=== PATIENT | female | born 1950 | race Caucasian/White ===

== ENCOUNTER 2021-09-04 11:01 | Outpatient (CLI) | payer MEDICARE, BC | END 2021-09-04 11:02 | disposition home or self-care (01) | LOC: CSHMAMMO 11:01 | PROVIDERS: ATTEND Internal Medicine | DX: Z12.31 Encounter for screening mammogram for malignant neoplasm of breast (principal); Z85.3 Personal history of malignant neoplasm of breast; Z80.3 Family history of malignant neoplasm of breast | CPT/HCPCS: 77063; 77067 ==

== ENCOUNTER 2021-09-28 12:06 | Outpatient (CLI) | payer MEDICARE, BC ==
[2021-09-29 07:54] LABS: SARS-CoV-2 PCR by NAA Not Detected (NotDetected)
== END 2021-09-28 12:07 | disposition home or self-care (01) ==
LOC: CSHLAB 12:06
PROVIDERS: ATTEND Internal Medicine
DX: Z20.822 Contact with and (suspected) exposure to COVID-19 (principal)
CPT/HCPCS: U0003; U0005

== ENCOUNTER 2021-10-01 08:39 | Outpatient (CLI) | payer MEDICARE, BC | END 2021-10-01 08:40 | disposition home or self-care (01) | LOC: CSHRAD 08:39 | PROVIDERS: ATTEND Internal Medicine | DX: K44.9 Diaphragmatic hernia without obstruction or gangrene (principal); K21.9 Gastro-esophageal reflux disease without esophagitis | CPT/HCPCS: 74246 ==

== ENCOUNTER 2022-05-16 11:39 | Emergency (ER) | payer MEDICARE, BC | END 2022-05-16 13:38 | disposition home or self-care (01) | LOC: CSHERS 11:39 | DX: S09.90XA Unspecified injury of head, initial encounter (principal); S30.0XXA Contusion of lower back and pelvis, initial encounter; K21.9 Gastro-esophageal reflux disease without esophagitis; W11.XXXA Fall on and from ladder, initial encounter | CPT/HCPCS: 70450; 72125; 72220 ==

== ENCOUNTER 2022-10-18 14:22 | Outpatient (CLI) | payer MEDICARE, BC | END 2022-10-18 14:23 | disposition home or self-care (01) | LOC: CSHMAMMO 14:22 | PROVIDERS: ATTEND Student in an Organized Health Care Education/Training Program | DX: Z12.31 Encounter for screening mammogram for malignant neoplasm of breast (principal); R92.1 Mammographic calcification found on diagnostic imaging of breast; N63.10 Unspecified lump in the right breast, unspecified quadrant; Z80.3 Family history of malignant neoplasm of breast | CPT/HCPCS: 77063; 77067 ==

== ENCOUNTER 2023-10-28 09:15 | Outpatient (CLI) | payer MEDICARE, BC | END 2023-10-28 09:16 | disposition home or self-care (01) | LOC: CSHMAMMO 09:15 | PROVIDERS: ATTEND Student in an Organized Health Care Education/Training Program | DX: Z12.31 Encounter for screening mammogram for malignant neoplasm of breast (principal); Z13.820 Encounter for screening for osteoporosis; Z78.0 Asymptomatic menopausal state; M81.0 Age-related osteoporosis without current pathological fracture; Z80.3 Family history of malignant neoplasm of breast | CPT/HCPCS: 77063; 77067; 77080 ==

== ENCOUNTER 2025-08-03 16:28 | Emergency (ER) | payer MEDICARE, BC | END 2025-08-03 17:50 | disposition home or self-care (01) | LOC: CSHERS 16:28 | DX: S51.011A Laceration without foreign body of right elbow, initial encounter (principal); J34.0 Abscess, furuncle and carbuncle of nose; I48.91 Unspecified atrial fibrillation; Z23 Encounter for immunization; Z79.01 Long term (current) use of anticoagulants; V49.40XA Driver injured in collision with unspecified motor vehicles in traffic accident, initial encounter; Y92.410 Unspecified street and highway as the place of occurrence of the external cause | CPT/HCPCS: 90471; 90715 ==